=== PATIENT | female | born 1990 | race Caucasian/White ===

== ENCOUNTER 2019-02-18 16:08 | Emergency (ER) | payer MEDICAID ==
[~2019-02-18] VITALS: Ht 165.1 cm; Wt 102.3 kg
[2019-02-18 16:22] VITALS: Ht 165.1 cm; Wt 102.3 kg
[2019-02-18 21:01] VITALS: BP 142/96
== END 2019-02-18 21:01 | disposition home or self-care (01) ==
LOC: ED 16:08
DX: K43.9 Ventral hernia without obstruction or gangrene (principal); R31.9 Hematuria, unspecified; Z98.51 Tubal ligation status

== ENCOUNTER 2019-09-17 20:26 | Emergency (ER) | payer OTHER ==
[~2019-09-17] VITALS: Ht 165.1 cm; Wt 98.0 kg
[2019-09-17 21:01] LABS: PLATELET COUNT 264 x10^3mcL (130-400); RED CELL DISTRIBUTION WIDTH 12.6 % (11.5-14.5)
[2019-09-17 21:03] VITALS: Ht 165.1 cm; Wt 98.0 kg
[2019-09-17 21:23] LABS: CALCIUM 9.2 mg/dL (8.5-10.1); CARBON DIOXIDE 27.1 mmol/L (21-32); CHLORIDE SERUM 103 mmol/L (98-107); CREATININE SERUM 0.8 mg/dL (0.6-1.0); GFR1 > 60 mL/min; GLUCOSE SERUM 83 mg/dL (74-106); POTASSIUM SERUM 3.8 mmol/L (3.5-5.1); SODIUM SERUM 139 mmol/L (136-145)
[2019-09-17 21:30] LABS: ALBUMIN 3.8 g/dL (3.4-5.0); ALKALINE PHOSPHATASE 82 U/L (46-116); ALT/SGPT 25 U/L (14-59); AST/SGOT 16 U/L (15-37); BILIRUBIN TOTAL 0.4 mg/dL (0.20-1.00); TOTAL PROTEIN, SERUM 7.7 g/dL (6.4-8.2)
[2019-09-18 03:50] VITALS: BP 112/63
== END 2019-09-18 03:50 | disposition home or self-care (01) ==
LOC: ED 20:26
DX: R10.30 Lower abdominal pain, unspecified (principal); R11.2 Nausea with vomiting, unspecified; K59.00 Constipation, unspecified; Z98.51 Tubal ligation status
CPT/HCPCS: 36415

== ENCOUNTER 2020-03-15 18:53 | Emergency (ER) | payer OTHER ==
[~2020-03-15] VITALS: Ht 165.1 cm; Wt 95.3 kg
[2020-03-15 19:17] VITALS: Ht 165.1 cm; Wt 95.3 kg
[2020-03-15 23:34] VITALS: BP 125/90
== END 2020-03-15 23:34 | disposition home or self-care (01) ==
LOC: ED 18:53
DX: J02.0 Streptococcal pharyngitis (principal); F17.210 Nicotine dependence, cigarettes, uncomplicated; Z98.51 Tubal ligation status
CPT/HCPCS: 99406; J1100